=== PATIENT | male | born 1995 | race Caucasian/White ===

== ENCOUNTER 2017-10-02 19:22 | Emergency (ER) | payer MEDICAID ==
[~2017-10-02] VITALS: Ht 172.7 cm; Wt 85.7 kg
[2017-10-02 19:25] VITALS: BP 133/63
--- NOTE | 2017-10-02 19:27 | NUR ---
TO LOBBY A/W BED, AMBULATORY , VSS ERMD NOTED
[2017-10-02 19:28] VITALS: BP 133/63
--- NOTE | 2017-10-02 19:32 | NUR ---
PATIENT TO ER BED 6.
--- NOTE | 2017-10-02 19:42 | NUR ---
PATIENT PRESENTS TO ED WITH C/O PENILE PAIN X 3 WEEKS. PT STATES WORSENING PAIN WHEN EJACTULATION .PT STATES HE WAS USING MARIJ[place] FOR PAIN, AND STATES IT HAS BEEN ALLEVIATING, BUT STATES SYMPTOMS STILL PERSIST.PT DENIES N/V/D; SKIN IS PINK/WARM/DRY; AAOX4 WITH EVEN AND STEADY GAIT; LUNGS CLEAR BL; HR EVEN AND REGULAR; PT DENIES ANY FEVER, CP, SOB, OR COUGH AT THIS TIME; PATIENT STATES PAIN OF 7/10 AT THIS TIME; VSS; PATIENT POSITIONED FOR COMFORT; HOB ELEVATED; BEDRAILS UP X2; BED DOWN. ER MD MADE AWARE OF PT STATUS.
[2017-10-02] MEDS ORDERED: IBUPROFEN 800 MG TAB PO ONE (20:05)
--- NOTE | 2017-10-02 20:19 | NUR ---
ULTRASOUND AT BEDSIDE
[2017-10-02] MEDS ORDERED: cefTRIAXone 250 MG in LIDOCAINE MPF 1% - 5 mL VIAL 0.9 ML IM ONE (20:45)
[2017-10-02 21:30] LABS: APPEARANCE,URINE CLEAR (CLEAR); BILIRUBIN,URINE NEGATIVE (NEGATIVE); BLOOD, URINE NEGATIVE (NEGATIVE); COLOR,URINE YELLOW (YELLOW); LEUKOCYTE ESTERASE ,URINE NEGATIVE (NEGATIVE); NITRITE, URINE NEGATIVE (NEGATIVE); PH,URINE 6.5 (5.0-9.0); UGLUCOSE NEGATIVE (NEGATIVE)
--- NOTE | 2017-10-02 21:53 | NUR ---
Patient discharged with v/s stable. Written and verbal after care instructions given and explained. Patient alert, oriented and verbalized understanding of instructions. Ambulatory with steady gait. All questions addressed prior to discharge. ID band removed. Patient advised to follow up with PMD. Rx of DOXYCYCLINE AND MOTRIN given. Patient educated on indication of medication including possible reaction and side effects. Opportunity to ask questions provided and answered.
== END 2017-10-02 21:53 | disposition home or self-care (01) ==
LOC: MED 19:22
DX: N50.82 Scrotal pain (principal); F12.90 Cannabis use, unspecified, uncomplicated
CPT/HCPCS: 36415; 76870; 81003; 96372; 99285; J0696; J2001; Q0092

== ENCOUNTER 2017-10-06 17:34 | Emergency (ER) | payer MEDICAID ==
[~2017-10-06] VITALS: Ht 172.7 cm; Wt 85.7 kg
[2017-10-06 17:36] VITALS: BP 133/78
--- NOTE | 2017-10-06 17:45 | NUR ---
PATIENT AMBULATED TO BED 3. REPORT GIVEN TO MARIE PERDUE.
--- NOTE | 2017-10-06 17:50 | NUR ---
21 YO M BIB FAMILY W/ C/O MID ABDOMINAL PAIN THAT IS SHARP AND NON-RADIATING, ACCOMPANIED BY N/V/D X 2 DAYS. DENIES FEVER/CHILLS. CAME HERE 5 DAYS AGO FOR TESTICULAR PAIN & UTI, GOT MED DOXYCYLINE, MOTRIN. PT AAOX4. GCS 15. CMS INTACT. RR EVEN AND UNLABORED. LUNGS CLEAR. ABD SOFT, NON-TENDER. ER MD NOTIFIED. PT NEEDS MET. SAFETY PRECAUTIONS IN PLACE. WILL CONTINUE TO MONITOR.
--- NOTE | 2017-10-06 19:15 | NUR ---
TRANSFER OF CARE AT THIS TIME, REPORT GIVEN TO IRON BUCIO.
[2017-10-06] MEDS ORDERED: ONDANSETRON 4 MG ODT PO ONE (20:05)
[2017-10-06 20:30] VITALS: BP 124/76
== END 2017-10-06 20:30 | disposition home or self-care (01) ==
LOC: MED 17:34
DX: A08.4 Viral intestinal infection, unspecified (principal)
CPT/HCPCS: 81002; 99283; S0119

== ENCOUNTER 2018-03-08 01:11 | Emergency (ER) | payer MEDICAID ==
[~2018-03-08] VITALS: Ht 160 cm; Wt 83.0 kg
[2018-03-08 01:11] VITALS: BP 138/89
--- NOTE | 2018-03-08 01:28 | NUR ---
Dr. Templeton evaluating patient at bedside.
--- NOTE | 2018-03-08 01:29 | NUR ---
PATIENT PRESENTS ER WITH C/O OF PAIN TO ABDOMEN REGION/EPIGASTRIC. PT HAS HAD INTERMITTENT PAIN FOR THE LAST WEEK. PT STATES HE HAD SOME SOFT STOOL LAST NIGHT. PT HAS CONCERN THAT HE HAS CONTRACTED HIV AND ASKED TO R/O. PT WAS AT [facility] YESTERDAY PER PT AND STATED HE WAS SEEN IN ER AND WAS RELEASED WITH [facility] MEDICATION PRESCRIPTION. PT PAIN LEVEL IS 5/10 AT THIS TIME AND INTERMITTENT TO 0/10. DENIES N/V/D; SKIN IS PINK/WARM/DRY; AAOX4 WITH EVEN AND STEADY GAIT; PT DENIES ANY FEVER, CP, SOB, OR COUGH/CONGESTION AT THIS TIME; VSS; PATIENT POSITIONED FOR COMFORT; HOB ELEVATED; BEDRAILS UP X2; BED DOWN. ER MD MADE AWARE OF PT STATUS.
[2018-03-08 02:34] VITALS: BP 138/89
--- NOTE | 2018-03-08 02:34 | NUR ---
Patient discharged with v/s stable. Written and verbal after care instructions given and explained. Patient verbalized understanding. Ambulatory with steady gait. All questions addressed prior to discharge. Advised to follow up with PMD.
== END 2018-03-08 02:34 | disposition home or self-care (01) ==
LOC: MED 01:11
DX: Z11.3 Encounter for screening for infections with a predominantly sexual mode of transmission (principal); R10.9 Unspecified abdominal pain
CPT/HCPCS: 36415; 99283